=== PATIENT | male | born 1940 | race African-American/Black ===

== ENCOUNTER 2017-08-20 18:58 | Inpatient (IN) | payer OTHER ==
[~2017-08-20] VITALS: Ht 193 cm; Wt 76.2 kg
[2017-08-20 19:57] LABS: BASOPHILS % 0.6 % (0.0-2.0); HEMATOCRIT. 37.8 % (42.0-52.0); HEMOGLOBIN. 12.7 g/dL (14.0-18.0); LYMPHOCYTES % 25.3 % (20.0-50.0); MEAN CORPUSCULAR HEMOGLOBIN 31.8 pg (28.0-32.0); MEAN CORPUSCULAR VOLUME 94.8 fL (80.0-94.0); MONOCYTES % 3.9 % (2.0-8.0); NEUTROPHILS % 69.2 % (40.0-76.0); RED BLOOD CELL COUNT 3.99 mill/uL (4.7-6.1); RED CELL DISTRIBUTION WIDTH 15.8 % (11.6-14.6)
[2017-08-20 20:02] LABS: PROTHROMBIN TIME 10.6 sec (9.4-11.6)
[2017-08-20 20:06] LABS: CARBON DIOXIDE 29 mEq/L (21-32); CHLORIDE 101 mEq/L (98-107); ETHANOL BLOOD < 10 mg/dL
[2017-08-20 20:12] LABS: TROPONIN I < 0.02 ng/mL (0.00-0.04)
[2017-08-20] MEDS ORDERED: SODIUM CHLORIDE 0.9% 1,000 ML IV ONE (20:37)
[2017-08-20 21:05] LABS: CLARITY URINE TURBID (CLEAR); COLOR URINE YELLOW (YELLOW); GLUCOSE URINE NEGATIVE (NEGATIVE); KETONES URINE NEGATIVE (NEGATIVE); LEUKOCYTE ESTERASE URINE 3+ (NEGATIVE); NITRITE URINE POSITIVE (NEGATIVE); OCCULT BLOOD URINE 3+ (NEGATIVE); PH URINE 5.5 (4.5-8.0); PROTEIN URINE TRACE (NEGATIVE); SPECIFIC GRAVITY URINE 1.017 (1.005-1.030); UROBILINOGEN URINE 0.2 E.U./dL (0.2-1.0)
[2017-08-20] MEDS ORDERED: PIPERACILLIN/TAZ 3.375G PREMIX 50 ML IV ONE (21:15)
[2017-08-20 21:30] LABS: *AMPHETAMINES SCREEN URINE NEGATIVE (NEGATIVE); *BARBITURATES SCREEN URINE NEGATIVE (NEGATIVE); *BENZODIAZEPINES SCREEN URINE NEGATIVE (NEGATIVE); *COCAINE SCREEN URINE NEGATIVE (NEGATIVE); CANNABINOID URINE SCREEN NEGATIVE (NEGATIVE); METHADONE URINE SCREEN NEGATIVE (NEGATIVE); OPIATES URINE SCREEN NEGATIVE (NEGATIVE); PHENCYCLIDINE URINE SCREEN NEGATIVE (NEGATIVE)
[2017-08-20] MEDS ORDERED: ACETAMINOPHEN 325MG TABLET PO PRN (22:15)
[2017-08-20] MEDS ORDERED: ONDANSETRON HCL 4MG/2ML VIAL IV PRN (22:15)
[2017-08-20] MEDS ORDERED: CLONIDINE 0.1MG TABLET PO PRN (22:15)
[2017-08-20] MEDS ORDERED: DOCUSATE SODIUM 100MG CAPSULE PO PRN (22:15)
[2017-08-20] MEDS ORDERED: HYDROMORPHONE HCL/PF 2MG/ML CPJ IV PRN (22:15)
[2017-08-20] MEDS ORDERED: GUAIFENESIN 200MG/10ML SUGAR FREE UDC PO PRN (22:15)
[2017-08-20] MEDS ORDERED: HYDROCODONE/ACETAMINOPHEN 5/325MG TABLET PO PRN (22:15)
[2017-08-20] MEDS ORDERED: NA PHOS,M-B/NA PHOS,DI-BA ENEMA 118ML PR PRN (22:15)
[2017-08-20] MEDS ORDERED: DIPHENHYDRAMINE 50MG/ML VIAL IV PRN (22:15)
[2017-08-20] MEDS ORDERED: MAGNESIUM/ALUMINUM HYDROXIDE/SIMETHICONE 30ML UDC PO PRN (22:15)
[2017-08-20 23:16] LABS: CHLORIDE 101 mEq/L (98-107)
[2017-08-20 23:18] LABS: CARBON DIOXIDE 29 mEq/L (21-32)
[2017-08-21] VITALS (13 sets, daily range): BP systolic 96–151; BP diastolic 54–92
[2017-08-21] MEDS ORDERED: SODIUM CHLORIDE 0.45% 1,000 ML IV SCH (02:00)
[2017-08-21] MEDS ORDERED: LEVOFLOXACIN 500MG PREMIX 100 ML IV SCH (03:00)
[2017-08-21] MEDS ORDERED: DEXTROSE 50% WATER 50ML SYRINGE IV PRN (03:45)
[2017-08-21 07:10] LABS: BASOPHILS % 0.5 % (0.0-2.0); EOSINOPHILS % 1.7 % (0.0-5.0); HEMATOCRIT. 36.2 % (42.0-52.0); HEMOGLOBIN. 11.8 g/dL (14.0-18.0); LYMPHOCYTES % 29.6 % (20.0-50.0); MEAN CORPUSCULAR VOLUME 95.3 fL (80.0-94.0); MEAN PLATELET VOLUME 9.4 fl (7.4-10.4); MONOCYTES % 6.4 % (2.0-8.0); NEUTROPHILS % 61.8 % (40.0-76.0); PLATELET 230 x1000/uL (130-400); RED CELL DISTRIBUTION WIDTH 15.2 % (11.6-14.6)
[2017-08-21] MEDS: BLOOD SUGAR DIAGNOSTIC STRIP TEST SCH ×3 (07:30→17:07)
[2017-08-21 07:59] LABS: CARBON DIOXIDE 28 mEq/L (21-32); CHLORIDE 105 mEq/L (98-107); HDL CHOLESTEROL 49 mg/dL (40-59); LDL CHOLESTEROL 115 mg/dL (5-100); T4 FREE 1.29 ng/dL (0.76-1.46); TROPONIN I < 0.02 ng/mL (0.00-0.04)
[2017-08-21] MEDS: INSULIN LISPRO 100 UNITS/ML SUBCUT SCH ×3 (10:39→18:59)
[2017-08-21 15:57] LABS: CREATINE KINASE 34 IU/L (39-308); CREATINE KINASE MB FRACTION 1.1 ng/mL (0.5-3.6); TROPONIN I < 0.02 ng/mL (0.00-0.04)
== END 2017-08-21 20:54 | disposition short-term general hospital (02) | DRG 689 ==
LOC: ER 19:47 → 5EST 21:10 → ENRESERV 22:46
PROVIDERS: ADMIT Internal Medicine; ATTEND Internal Medicine
DX: N39.0 Urinary tract infection, site not specified (principal); G93.41 Metabolic encephalopathy; E46 Unspecified protein-calorie malnutrition; I11.0 Hypertensive heart disease with heart failure; R65.10 Systemic inflammatory response syndrome (SIRS) of non-infectious origin without acute organ dysfunction; G45.9 Transient cerebral ischemic attack, unspecified; I50.9 Heart failure, unspecified; E86.0 Dehydration; D64.9 Anemia, unspecified; E11.9 Type 2 diabetes mellitus without complications; G30.9 Alzheimer's disease, unspecified; F02.80 Dementia in other diseases classified elsewhere, unspecified severity, without behavioral disturbance, psychotic disturbance, mood disturbance, and anxiety; Z68.20 Body mass index [BMI] 20.0-20.9, adult; Z79.899 Other long term (current) drug therapy; Z88.8 Allergy status to other drugs, medicaments and biological substances
CPT/HCPCS: 36415; 70450; 71010; 80048; 80053; 80061; 80305; 81001; 82550; 82553; 82962; 83036; 83605; 83880; 84439; 84443; 84484; 85025; 85379; 85610; 87040; 93005; 93306; 96365; 99291; G0482; J1815; J1956; J2543; J7030; A4315

== ENCOUNTER 2018-05-05 10:23 | Inpatient (IN) | payer MEDICARE, MEDICAID ==
[~2018-05-05] VITALS: Ht 193 cm; Wt 81.2 kg
[2018-05-05] MEDS ORDERED: ACETAMINOPHEN 650MG SUPP PR STA (10:27)
[2018-05-05] MEDS ORDERED: SODIUM CHLORIDE 0.9% 1000ML BAG (SEPSIS BOLUS) IV ONE ×2 (10:30→12:30)
[2018-05-05 12:01] LABS: BASOPHILS % 0.2 % (0.0-2.0); EOSINOPHILS % 0.8 % (0.0-5.0); HEMATOCRIT. 36.9 % (42.0-52.0); HEMOGLOBIN. 11.4 g/dL (14.0-18.0); LYMPHOCYTES % 13.7 % (20.0-50.0); MEAN CORPUSCULAR HEMOGLOBIN 28.5 pg (28.0-32.0); MEAN CORPUSCULAR VOLUME 92.1 fL (80.0-94.0); MEAN PLATELET VOLUME 9.4 fl (7.4-10.4); MONOCYTES % 6.2 % (2.0-8.0); NEUTROPHILS % 79.1 % (40.0-76.0); PLATELET 244 x1000/uL (130-400); RED BLOOD CELL COUNT 4.01 mill/uL (4.7-6.1); RED CELL DISTRIBUTION WIDTH 16.8 % (11.6-14.6)
[2018-05-05 12:03] LABS: CHLORIDE 118 mEq/L (98-107)
[2018-05-05 12:06] LABS: CLARITY URINE TURBID (CLEAR); COLOR URINE YELLOW (YELLOW); KETONES URINE 1+ (NEGATIVE); LEUKOCYTE ESTERASE URINE 3+ (NEGATIVE); NITRITE URINE NEGATIVE (NEGATIVE); OCCULT BLOOD URINE 3+ (NEGATIVE); PROTEIN URINE 2+ (NEGATIVE); SPECIFIC GRAVITY URINE 1.019 (1.005-1.030); UROBILINOGEN URINE 0.2 E.U./dL (0.2-1.0)
[2018-05-05 12:15] LABS: INR 1.1; PROTHROMBIN TIME 11.6 sec (9.4-11.6)
[2018-05-05] MEDS ORDERED: VANCOMYCIN 1 G PREMIX 200 ML IV ONE (12:15)
[2018-05-05] MEDS ORDERED: PIPERACILLIN/TAZ 3.375G PREMIX 50 ML IV ONE (12:15)
[2018-05-05] MEDS ORDERED: DIPHENHYDRAMINE 50MG/ML VIAL IV PRN (13:00)
[2018-05-05] MEDS ORDERED: HYDROCODONE/ACETAMINOPHEN 5/325MG TABLET PO PRN (13:00)
[2018-05-05] MEDS ORDERED: NA PHOS,M-B/NA PHOS,DI-BA ENEMA 118ML PR PRN (13:00)
[2018-05-05] MEDS ORDERED: SODIUM CHLORIDE 0.45% 1,000 ML IV SCH (13:00)
[2018-05-05] MEDS ORDERED: IPRATROPIUM/ALBUTEROL 0.5-3(2.5)MG/3ML NEB INH PRN (13:00)
[2018-05-05] MEDS ORDERED: ACETAMINOPHEN 325MG TABLET PO PRN (13:00)
[2018-05-05] MEDS ORDERED: MAGNESIUM/ALUMINUM HYDROXIDE/SIMETHICONE 30ML UDC PO PRN (13:00)
[2018-05-05] MEDS ORDERED: ACETAMINOPHEN 650MG SUPP PR PRN (13:00)
[2018-05-05] MEDS ORDERED: CLONIDINE 0.1MG TABLET PO PRN (13:00)
[2018-05-05] MEDS ORDERED: DEXTROSE 50% WATER 50ML SYRINGE IV PRN (13:00)
[2018-05-05] MEDS: INSULIN LISPRO 100 UNITS/ML SUBCUT SCH ×3 (16:15→20:45)
[2018-05-05 16:30] VITALS: BP 153/88
[2018-05-05] MEDS ORDERED: ONDANSETRON 4MG ODT PO PRN (16:45)
[2018-05-05 17:20] LABS: CREATINE KINASE MB FRACTION 0.8 ng/mL (0.5-3.6)
[2018-05-05] MEDS ORDERED: HYDRALAZINE 20MG/ML VIAL IV PRN (17:30)
[2018-05-05] MEDS: BLOOD SUGAR DIAGNOSTIC STRIP TEST SCH ×2 (17:32→20:38)
[2018-05-05] MEDS: DEXT 5%/0.45% NACL 1000ML 1,000 ML IV SCH (18:08)
[2018-05-05] MEDS: ENOXAPARIN 40MG/0.4ML SYR SUBCUT SCH (18:08)
[2018-05-05] MEDS ORDERED: VANCOMYCIN 500 MG PREMIX 100 ML IV NR ×2 (18:30→21:00)
[2018-05-05 18:48] VITALS: BP 153/84
[2018-05-05 20:00] VITALS: BP 142/77
[2018-05-05] MEDS ORDERED: TAMS0.4C31 MT (20:17)
[2018-05-05] MEDS ORDERED: AGGR MT (20:17)
[2018-05-05] MEDS ORDERED: ACET-2853 MT (20:17)
[2018-05-05] MEDS ORDERED: FLUD0.1T MT (20:17)
[2018-05-05] MEDS ORDERED: NITR100C MT (20:17)
[2018-05-05] MEDS ORDERED: INSLIS SUBCUT (20:17)
[2018-05-05] MEDS ORDERED: INSU100I11 SQ (20:17)
[2018-05-05] MEDS ORDERED: ATOR20TA65 MT (20:17)
[2018-05-05] MEDS: PIPERACILLIN/TAZ 3.375G PREMIX 50 ML IV SCH (21:47)
[2018-05-05 22:00] VITALS: BP 128/81
[2018-05-06] VITALS (7 sets, daily range): BP systolic 120–176; BP diastolic 62–92
[2018-05-06 00:58] LABS: CREATINE KINASE MB FRACTION 1.1 ng/mL (0.5-3.6)
[2018-05-06] MEDS: DEXT 5%/0.45% NACL 1000ML 1,000 ML IV SCH (04:34)
[2018-05-06 06:24] LABS: BASOPHILS % 0.2 % (0.0-2.0); EOSINOPHILS % 2.8 % (0.0-5.0); HEMATOCRIT. 34.1 % (42.0-52.0); HEMOGLOBIN. 10.6 g/dL (14.0-18.0); LYMPHOCYTES % 11.8 % (20.0-50.0); MEAN CORPUSCULAR HEMOGLOBIN 28.2 pg (28.0-32.0); MEAN CORPUSCULAR VOLUME 90.7 fL (80.0-94.0); MEAN PLATELET VOLUME 9.7 fl (7.4-10.4); MONOCYTES % 5.9 % (2.0-8.0); NEUTROPHILS % 79.3 % (40.0-76.0); PLATELET 227 x1000/uL (130-400); RED BLOOD CELL COUNT 3.76 mill/uL (4.7-6.1); RED CELL DISTRIBUTION WIDTH 17.1 % (11.6-14.6)
[2018-05-06] MEDS: PIPERACILLIN/TAZ 3.375G PREMIX 50 ML IV SCH ×3 (06:29→22:15)
[2018-05-06 06:32] LABS: CHLORIDE 116 mEq/L (98-107)
[2018-05-06 06:43] LABS: HDL CHOLESTEROL 35 mg/dL (40-59)
[2018-05-06 06:44] LABS: LDL CHOLESTEROL 75 mg/dL (5-100)
[2018-05-06 06:45] LABS: T4 FREE 1.39 ng/dL (0.76-1.46)
[2018-05-06] MEDS: INSULIN LISPRO 100 UNITS/ML SUBCUT SCH ×5 (08:04→21:43)
[2018-05-06] MEDS: BLOOD SUGAR DIAGNOSTIC STRIP TEST SCH ×4 (08:04→21:32)
[2018-05-06] MEDS: DEXTROSE 5% WATER 1,000 ML IV SCH (11:25)
[2018-05-06] MEDS ORDERED: INSULIN GLARGINE UD 100 UNITS/ML SYR SUBCUT SCH (14:00)
[2018-05-06] MEDS ORDERED: VANCOMYCIN 1 G PREMIX 200 ML IV SCH (15:00)
[2018-05-06] MEDS: FLUCONAZOLE 200 MG/100ML BAG 100 ML IV SCH (15:47)
[2018-05-06] MEDS: ENOXAPARIN 40MG/0.4ML SYR SUBCUT SCH (17:51)
[2018-05-06] MEDS: VANCOMYCIN 1 G PREMIX 200 ML IV SCH (17:51)
[2018-05-06 18:48] LABS: VITAMIN B12 SERUM 1822 pg/mL (211-911)
[2018-05-07] VITALS: BP 114/63
[2018-05-07 04:00] VITALS: BP 151/85
[2018-05-07] MEDS: PIPERACILLIN/TAZ 3.375G PREMIX 50 ML IV SCH ×3 (06:25→21:29)
[2018-05-07] MEDS: DEXTROSE 5% WATER 1,000 ML IV SCH (06:26)
[2018-05-07] MEDS: BLOOD SUGAR DIAGNOSTIC STRIP TEST SCH ×4 (06:27→21:29)
[2018-05-07] MEDS: INSULIN LISPRO 100 UNITS/ML SUBCUT SCH ×4 (06:38→21:34)
[2018-05-07 07:53] VITALS: BP 122/62
[2018-05-07 08:06] LABS: HEMOGLOBIN 10.7 g/dL (14.0-18.0); MEAN CORPUSCULAR HEMOGLOBIN 28.5 pg (28.0-32.0); PLATELET 230 x1000/uL (130-400); RED BLOOD CELL COUNT 3.77 mill/uL (4.7-6.1); RED CELL DISTRIBUTION WIDTH 16.3 % (11.6-14.6)
[2018-05-07 08:42] LABS: CHLORIDE 113 mEq/L (98-107)
[2018-05-07] MEDS: FLUCONAZOLE 200 MG/100ML BAG 100 ML IV SCH (09:35)
[2018-05-07] MEDS ORDERED: KCL 20MEQ/100ML PREMIX 100 ML IV SCH (10:00)
[2018-05-07 11:30] VITALS: BP 114/55
[2018-05-07] MEDS ORDERED: SODIUM BICARBONATE 4% (2.4MEQ) 5ML VIAL IV ONE (12:42)
[2018-05-07] MEDS ORDERED: LIDOCAINE HCL 1% 20ML VIAL (Pyxis) INJ ONE (12:42)
[2018-05-07] MEDS: VANCOMYCIN 1 G PREMIX 200 ML IV SCH (13:19)
[2018-05-07 16:00] VITALS: BP 140/80
[2018-05-07] MEDS: ENOXAPARIN 40MG/0.4ML SYR SUBCUT SCH (17:14)
[2018-05-07 20:00] VITALS: BP 143/74
[2018-05-08] VITALS: BP 140/63
[2018-05-08] MEDS: DEXTROSE 5% WATER 1,000 ML IV SCH (00:53)
[2018-05-08] MEDS: VANCOMYCIN 1 G PREMIX 200 ML IV SCH ×2 (02:26→21:40)
[2018-05-08 04:00] VITALS: BP 95/50
[2018-05-08] MEDS: PIPERACILLIN/TAZ 3.375G PREMIX 50 ML IV SCH (05:50)
[2018-05-08] MEDS: BLOOD SUGAR DIAGNOSTIC STRIP TEST SCH ×4 (05:50→21:40)
[2018-05-08] MEDS: INSULIN LISPRO 100 UNITS/ML SUBCUT SCH ×4 (06:17→21:56)
[2018-05-08 08:30] VITALS: BP 133/69
[2018-05-08] MEDS: FLUCONAZOLE 200 MG/100ML BAG 100 ML IV SCH (09:55)
[2018-05-08 12:00] VITALS: BP 146/72
[2018-05-08] MEDS: DEXT 5%/0.45% NACL 1000ML 1,000 ML IV SCH (13:12)
[2018-05-08] MEDS ORDERED: KCL 20MEQ/100ML PREMIX 100 ML IV NR (14:00)
[2018-05-08 15:47] LABS: CHLORIDE 104 mEq/L (98-107)
[2018-05-08 16:00] VITALS: BP 130/70
[2018-05-08] MEDS: LEVOFLOXACIN 500MG PREMIX 100 ML IV SCH (17:36)
[2018-05-08] MEDS: ENOXAPARIN 40MG/0.4ML SYR SUBCUT SCH (17:36)
[2018-05-08 20:00] VITALS: BP 117/60
[2018-05-09] VITALS: BP 129/79
[2018-05-09] MEDS: DEXT 5%/0.45% NACL 1000ML 1,000 ML IV SCH ×3 (00:31→20:31)
[2018-05-09 04:00] VITALS: BP 121/62
[2018-05-09] MEDS: BLOOD SUGAR DIAGNOSTIC STRIP TEST SCH ×4 (06:09→20:31)
[2018-05-09] MEDS: INSULIN LISPRO 100 UNITS/ML SUBCUT SCH ×4 (06:15→20:39)
[2018-05-09 07:29] LABS: CHLORIDE 106 mEq/L (98-107)
[2018-05-09 08:00] VITALS: BP 126/70
[2018-05-09] MEDS ORDERED: KCL 20MEQ/100ML PREMIX 100 ML IV SCH (08:30)
[2018-05-09] MEDS ORDERED: POTASSIUM CHLORIDE IV SCH (10:00)
[2018-05-09] MEDS ORDERED: DEXT IV SCH (10:00)
[2018-05-09] MEDS ORDERED: NACL IV SCH (10:00)
[2018-05-09] MEDS ORDERED: POTASSIUM CHLORIDE INJ 60 MEQ in DEXT 5% WATER 500 ML IV SCH (10:00)
[2018-05-09 12:00] VITALS: BP 116/68
[2018-05-09] MEDS: LEVOFLOXACIN 500MG PREMIX 100 ML IV SCH (13:34)
[2018-05-09] MEDS: VANCOMYCIN 1 G PREMIX 200 ML IV SCH (15:31)
[2018-05-09 16:00] VITALS: BP 116/68
[2018-05-09] MEDS: ENOXAPARIN 40MG/0.4ML SYR SUBCUT SCH (18:10)
[2018-05-09 20:00] VITALS: BP 117/64
[2018-05-10] VITALS: BP 127/74
[2018-05-10] MEDS ORDERED: POTASSIUM CHLORIDE 20MEQ TABLET SR PO SCH (00:59)
[2018-05-10 04:00] VITALS: BP 104/70
[2018-05-10] MEDS: BLOOD SUGAR DIAGNOSTIC STRIP TEST SCH ×4 (06:23→21:10)
[2018-05-10] MEDS: INSULIN LISPRO 100 UNITS/ML SUBCUT SCH ×4 (06:34→21:11)
[2018-05-10 06:39] LABS: BASOPHILS % 0.2 % (0.0-2.0); EOSINOPHILS % 3.2 % (0.0-5.0); HEMOGLOBIN. 10.1 g/dL (14.0-18.0); MEAN CORPUSCULAR HEMOGLOBIN 28.7 pg (28.0-32.0); MEAN CORPUSCULAR VOLUME 87.6 fL (80.0-94.0); MEAN PLATELET VOLUME 8.8 fl (7.4-10.4); MONOCYTES % 7.9 % (2.0-8.0); NEUTROPHILS % 62.7 % (40.0-76.0); PLATELET 229 x1000/uL (130-400); RED BLOOD CELL COUNT 3.54 mill/uL (4.7-6.1); RED CELL DISTRIBUTION WIDTH 15.9 % (11.6-14.6)
[2018-05-10 07:17] LABS: CHLORIDE 104 mEq/L (98-107)
[2018-05-10 08:00] VITALS: BP 123/71
[2018-05-10] MEDS: DEXT 5%/0.45% NACL 1000ML 1,000 ML IV SCH (09:01)
[2018-05-10] MEDS: VANCOMYCIN 1 G PREMIX 200 ML IV SCH (09:09)
[2018-05-10 12:00] VITALS: BP 138/63
[2018-05-10] MEDS: LEVOFLOXACIN 500MG PREMIX 100 ML IV SCH (13:39)
[2018-05-10 16:00] VITALS: BP 131/83
[2018-05-10] MEDS: MICAFUNGIN 100 MG in SODIUM CHLORIDE 0.9% 100 ML IV SCH (16:52)
[2018-05-10] MEDS: ENOXAPARIN 40MG/0.4ML SYR SUBCUT SCH (18:31)
[2018-05-10 20:00] VITALS: BP 130/71
[2018-05-11] VITALS (7 sets, daily range): BP systolic 120–151; BP diastolic 69–81
[2018-05-11] MEDS: VANCOMYCIN 1 G PREMIX 200 ML IV SCH ×2 (02:54→22:10)
[2018-05-11] MEDS: BLOOD SUGAR DIAGNOSTIC STRIP TEST SCH ×4 (06:25→21:00)
[2018-05-11] MEDS: INSULIN LISPRO 100 UNITS/ML SUBCUT SCH ×4 (06:25→22:12)
[2018-05-11 07:57] LABS: HEMATOCRIT 29.2 % (42.0-52.0); HEMOGLOBIN 9.7 g/dL (14.0-18.0); MEAN CORPUSCULAR HEMOGLOBIN 28.8 pg (28.0-32.0); PLATELET 252 x1000/uL (130-400); RED BLOOD CELL COUNT 3.36 mill/uL (4.7-6.1); RED CELL DISTRIBUTION WIDTH 15.6 % (11.6-14.6)
[2018-05-11 08:04] LABS: CHLORIDE 104 mEq/L (98-107)
[2018-05-11] MEDS ORDERED: POTASSIUM CHLORIDE INJ 40 MEQ in DEXT 5% WATER 250 ML IV SCH (13:00)
[2018-05-11] MEDS: LEVOFLOXACIN 500MG PREMIX 100 ML IV SCH (14:28)
[2018-05-11] MEDS: MICAFUNGIN 100 MG in SODIUM CHLORIDE 0.9% 100 ML IV SCH (16:11)
[2018-05-11] MEDS: ENOXAPARIN 40MG/0.4ML SYR SUBCUT SCH (17:53)
[2018-05-11] MEDS: INSULIN GLARGINE UD 100 UNITS/ML SYR SUBCUT SCH (22:12)
[2018-05-12 00:19] VITALS: BP 119/77
[2018-05-12 04:29] VITALS: BP 118/72
[2018-05-12] MEDS: INSULIN LISPRO 100 UNITS/ML SUBCUT SCH ×4 (06:42→21:00)
[2018-05-12] MEDS: BLOOD SUGAR DIAGNOSTIC STRIP TEST SCH ×4 (06:42→20:52)
[2018-05-12 06:55] LABS: HEMOGLOBIN 9.7 g/dL (14.0-18.0); MEAN CORPUSCULAR HEMOGLOBIN 28.4 pg (28.0-32.0); PLATELET 299 x1000/uL (130-400); RED BLOOD CELL COUNT 3.41 mill/uL (4.7-6.1); RED CELL DISTRIBUTION WIDTH 16.3 % (11.6-14.6)
[2018-05-12 08:00] VITALS: BP 102/52
[2018-05-12 08:00] LABS: CHLORIDE 106 mEq/L (98-107)
[2018-05-12 12:00] VITALS: BP 135/71
[2018-05-12] MEDS: LEVOFLOXACIN 500MG PREMIX 100 ML IV SCH (13:12)
[2018-05-12] MEDS ORDERED: POTASSIUM CHLORIDE INJ 40 MEQ in DEXT 5% WATER 500 ML IV NR (14:00)
[2018-05-12] MEDS: VANCOMYCIN 1 G PREMIX 200 ML IV SCH (15:32)
[2018-05-12 16:00] VITALS: BP 106/62
[2018-05-12] MEDS: MICAFUNGIN 100 MG in SODIUM CHLORIDE 0.9% 100 ML IV SCH (17:38)
[2018-05-12] MEDS: ENOXAPARIN 40MG/0.4ML SYR SUBCUT SCH (18:33)
[2018-05-12 20:00] VITALS: BP 132/67
[2018-05-12] MEDS: INSULIN GLARGINE UD 100 UNITS/ML SYR SUBCUT SCH (22:15)
[2018-05-13] VITALS: BP 134/69
[2018-05-13 04:00] VITALS: BP 108/69
[2018-05-13] MEDS: BLOOD SUGAR DIAGNOSTIC STRIP TEST SCH ×3 (05:43→16:53)
[2018-05-13] MEDS: INSULIN LISPRO 100 UNITS/ML SUBCUT SCH ×3 (06:43→17:06)
[2018-05-13 08:00] VITALS: BP 146/72
[2018-05-13 09:06] LABS: HEMATOCRIT 32.8 % (42.0-52.0); HEMOGLOBIN 10.4 g/dL (14.0-18.0); PLATELET 316 x1000/uL (130-400); RED BLOOD CELL COUNT 3.72 mill/uL (4.7-6.1); RED CELL DISTRIBUTION WIDTH 16.2 % (11.6-14.6)
[2018-05-13 09:59] LABS: CHLORIDE 105 mEq/L (98-107)
[2018-05-13] MEDS ORDERED: PROPOFOL 200MG/20ML VIAL IV ONE (12:27)
[2018-05-13] MEDS ORDERED: VANCOMYCIN 1 G PREMIX 200 ML IV SCH (15:00)
[2018-05-13 16:00] VITALS: BP 142/76
[2018-05-13] MEDS: MICAFUNGIN 100 MG in SODIUM CHLORIDE 0.9% 100 ML IV SCH (16:53)
[2018-05-13] MEDS: ENOXAPARIN 40MG/0.4ML SYR SUBCUT SCH (16:56)
[2018-05-13 18:21] VITALS: BP 142/76
== END 2018-05-13 20:30 | DRG 871 ==
LOC: ER 10:40 → INTOOBSV 12:21 → OBSVTOIN 12:21 → 5EST 12:21 → EDBEDREQ 12:24 → SUPCPDRO 12:50 → ENRESERV 15:21 → 5WST 05-06 14:18
PROVIDERS: ADMIT Internal Medicine; ATTEND Internal Medicine
PROC: B5181ZA Fluoroscopy of Superior Vena Cava using Low Osmolar Contrast, Guidance (ICD-10-PCS; 2018-05-07)
PROC: 02HV33Z Insertion of Infusion Device into Superior Vena Cava, Percutaneous Approach (ICD-10-PCS; 2018-05-07)
PROC: B548ZZA Ultrasonography of Superior Vena Cava, Guidance (ICD-10-PCS; 2018-05-07)
PROC: 0T778DZ Dilation of Left Ureter with Intraluminal Device, Via Natural or Artificial Opening Endoscopic (ICD-10-PCS; 2018-05-13)
PROC: 0TP98DZ Removal of Intraluminal Device from Ureter, Via Natural or Artificial Opening Endoscopic (ICD-10-PCS; principal; 2018-05-13 12:30)
DX: A41.9 Sepsis, unspecified organism (principal); I50.33 Acute on chronic diastolic (congestive) heart failure; G93.6 Cerebral edema; G93.41 Metabolic encephalopathy; T83.112A Breakdown (mechanical) of indwelling ureteral stent, initial encounter; D68.59 Other primary thrombophilia; E87.0 Hyperosmolality and hypernatremia; I13.0 Hypertensive heart and chronic kidney disease with heart failure and stage 1 through stage 4 chronic kidney disease, or unspecified chronic kidney disease; N13.6 Pyonephrosis; B37.89 Other sites of candidiasis; N17.9 Acute kidney failure, unspecified; N13.8 Other obstructive and reflux uropathy; D64.9 Anemia, unspecified; E11.22 Type 2 diabetes mellitus with diabetic chronic kidney disease; E11.51 Type 2 diabetes mellitus with diabetic peripheral angiopathy without gangrene; E86.0 Dehydration; E87.6 Hypokalemia; F03.90 Unspecified dementia, unspecified severity, without behavioral disturbance, psychotic disturbance, mood disturbance, and anxiety; G93.89 Other specified disorders of brain; N40.1 Benign prostatic hyperplasia with lower urinary tract symptoms; N18.9 Chronic kidney disease, unspecified; Y83.8 Other surgical procedures as the cause of abnormal reaction of the patient, or of later complication, without mention of misadventure at the time of the procedure; Z87.01 Personal history of pneumonia (recurrent); Z74.01 Bed confinement status; I69.398 Other sequelae of cerebral infarction; Z88.8 Allergy status to other drugs, medicaments and biological substances; Y92.89 Other specified places as the place of occurrence of the external cause
CPT/HCPCS: 36415; 36569; 51702; 70450; 70551; 71045; 74018; 74176; 76770; 76937; 77001; 80048; 80053; 80061; 80202; 81003; 82550; 82553; 82607; 82962; 83036; 83605; 84153; 84439; 84443; 84484; 85025; 85027; 85610; 87040; 87086; 87106; 92610; 93005; 93306; 93970; 96374; 96375; 97163; 99291; C1725; J1450; J1650; J1815; J1956; J2248; J2543; J2704; J3370; J3480; J3490; J7030; J7040; J7050; J7060; J7070; G0103